=== PATIENT | female | born 1965 | race Hispanic/Latino ===

== ENCOUNTER 2021-01-19 15:42 | Emergency (ER) | payer MEDICAID ==
--- NOTE | 2021-01-19 18:20 | Emergency Department Report ---
ED General Adult HPI - General Chief complaint: Psych Stated complaint: MEDICATIONS NEEDED Time Seen by Provider: 01/19/21 17:06 Source: patient Mode of arrival: Ambulatory Limitations: No Limitations - History of Present Illness Initial comments: Patient presents to the emergency department the chief complaint of auditory hallucinations. Patient states she has a history of schizophrenia and complains of having uncontrollable auditory hallucinations over the last couple of weeks. Patient denies any suicidal or homicidal ideations. Patient also denies any visual hallucinations. Patient patient states she has been to multiple psych facilities in the past and states that she needs help with her auditory hallucinations. -: unknown Severity scale (0 -10): 0 Consistency: constant Improves with: none Worsens with: none Associated Symptoms: denies other symptoms Treatments Prior to Arrival: none - Related Data Home Medications Medication Instructions Recorded Confirmed Last Taken Unobtainable 01/19/21 01/19/21 Unknown Allergies Allergy/AdvReac Type Severity Reaction Status Date / Time cephapirin [From Cefadyl] Allergy Rash Verified 01/19/21 16:26 codeine Allergy Rash Verified 01/19/21 16:26 ED Review of Systems ROS: Stated complaint: MEDICATIONS NEEDED Other details as noted in HPI Constitutional: denies: chills, fever Eyes: denies: eye pain, eye discharge, vision change ENT: denies: ear pain, throat pain Respiratory: denies: cough, shortness of breath, wheezing Cardiovascular: denies: chest pain, palpitations Endocrine: no symptoms reported Gastrointestinal: denies: abdominal pain, nausea, diarrhea Genitourinary: denies: urgency, dysuria, discharge Musculoskeletal: denies: back pain, joint swelling, arthralgia Skin: denies: rash, lesions Neurological: denies: headache, weakness, paresthesias Psychiatric: auditory hallucinations. denies: anxiety, depression, visual hallucinations, homicidal thoughts, suicidal thoughts Hematological/Lymphatic: denies: easy bleeding, easy bruising ED Past Medical Hx - Past Medical History Previous Medical History?: No - Surgical History Past Surgical History?: No - Medications Home Medications: Home Medications Medication Instructions Recorded Confirmed Last Taken Type Unobtainable 01/19/21 01/19/21 Unknown History ED Physical Exam - General Limitations: No Limitations General appearance: alert, in no apparent distress - Head Head exam: Present: atraumatic, normocephalic - Eye Eye exam: Present: normal appearance - ENT ENT exam: Present: mucous membranes moist - Neck Neck exam: Present: normal inspection - Respiratory Respiratory exam: Present: normal lung sounds bilaterally. Absent: respiratory distress - Cardiovascular Cardiovascular Exam: Present: regular rate, normal rhythm. Absent: systolic murmur, diastolic murmur, rubs, gallop - GI/Abdominal GI/Abdominal exam: Present: soft, normal bowel sounds. Absent: distended, tenderness - Extremities Exam Extremities exam: Present: normal inspection - Back Exam Back exam: Present: normal inspection - Neurological Exam Neurological exam: Present: alert, oriented X3, CN II-XII intact. Absent: motor sensory deficit - Psychiatric Psychiatric exam: Present: flat affect. Absent: homicidal ideation, suicidal ideation - Skin Skin exam: Present: warm, dry, intact, normal color. Absent: rash ED Course Vital Signs 01/19/21 17:17 Temperature 98 F Pulse Rate 74 Respiratory 20 Rate Blood Pressure 118/77 [Right] O2 Sat by Pulse 98 Oximetry ED Medical Decision Making - Lab Data Result diagrams: 01/19/21 17:52 01/19/21 17:52 Lab Results 01/19/21 01/19/21 01/19/21 Range/Units 17:52 17:52 17:52 WBC 5.4 (4.5-11.0) K/mm3 RBC 4.25 (3.65-5.03) M/mm3 Hgb 13.9 (10.1-14.3) gm/dl Hct 40.4 (30.3-42.9) % MCV 95 (79-97) fl MCH 33 H (28-32) pg MCHC 35 H (30-34) % RDW 16.1 H (13.2-15.2) % Plt Count 120 L (140-440) K/mm3 Lymph % (Auto) 34.5 (13.4-35.0) % [place] % (Auto) 7.8 H (0.0-7.3) % Eos % (Auto) 0.8 (0.0-4.3) % Baso % (Auto) 0.3 (0.0-1.8) % Lymph # (Auto) 1.9 (1.2-5.4) K/mm3 [place] # (Auto) 0.4 (0.0-0.8) K/mm3 Eos # (Auto) 0.0 (0.0-0.4) K/mm3 Baso # (Auto) 0.0 (0.0-0.1) K/mm3 Seg Neutrophils % 56.6 (40.0-70.0) % Seg Neutrophils # 3.0 (1.8-7.7) K/mm3 Sodium 134 L (137-145) mmol/L Potassium 3.4 L (3.6-5.0) mmol/L Chloride 93.6 L (98-107) mmol/L Carbon Dioxide 25 (22-30) mmol/L Anion Gap 19 mmol/L BUN 21 H (7-17) mg/dL Creatinine 0.8 (0.6-1.2) mg/dL Estimated GFR > 60 ml/min BUN/Creatinine Ratio 26 % Glucose 95 (65-100) mg/dL Calcium 9.5 (8.4-10.2) mg/dL Total Bilirubin 0.40 (0.1-1.2) mg/dL AST 28 (5-40) units/L ALT 10 (7-56) units/L Alkaline Phosphatase 77 (35-129) units/L Total Protein 7.2 (6.3-8.2) g/dL Albumin 4.0 (3.9-5) g/dL Albumin/Globulin Ratio 1.3 % Salicylates < 0.3 L (2.8-20.0) mg/dL Acetaminophen (10.0-30.0) ug/mL Plasma/Serum Alcohol (0-0.07) % 01/19/21 01/19/21 Range/Units 17:52 17:52 WBC (4.5-11.0) K/mm3 RBC (3.65-5.03) M/mm3 Hgb (10.1-14.3) gm/dl Hct (30.3-42.9) % MCV (79-97) fl MCH (28-32) pg MCHC (30-34) % RDW (13.2-15.2) % Plt Count (140-440) K/mm3 Lymph % (Auto) (13.4-35.0) % [place] % (Auto) (0.0-7.3) % Eos % (Auto) (0.0-4.3) % Baso % (Auto) (0.0-1.8) % Lymph # (Auto) (1.2-5.4) K/mm3 [place] # (Auto) (0.0-0.8) K/mm3 Eos # (Auto) (0.0-0.4) K/mm3 Baso # (Auto) (0.0-0.1) K/mm3 Seg Neutrophils % (40.0-70.0) % Seg Neutrophils # (1.8-7.7) K/mm3 Sodium (137-145) mmol/L Potassium (3.6-5.0) mmol/L Chloride (98-107) mmol/L Carbon Dioxide (22-30) mmol/L Anion Gap mmol/L BUN (7-17) mg/dL Creatinine (0.6-1.2) mg/dL Estimated GFR ml/min BUN/Creatinine Ratio % Glucose (65-100) mg/dL Calcium (8.4-10.2) mg/dL Total Bilirubin (0.1-1.2) mg/dL AST (5-40) units/L ALT (7-56) units/L Alkaline Phosphatase (35-129) units/L Total Protein (6.3-8.2) g/dL Albumin (3.9-5) g/dL Albumin/Globulin Ratio % Salicylates (2.8-20.0) mg/dL Acetaminophen 5.0 L (10.0-30.0) ug/mL Plasma/Serum Alcohol < 0.01 (0-0.07) % - Medical Decision Making 1013 applied Medically cleared Awaiting mental health evaluation Critical care attestation.: If time is entered above; I have spent that time in minutes in the direct care of this critically ill patient, excluding procedure time. ED Disposition Clinical Impression: Auditory hallucinations Disposition: [facility] Is pt being admited?: No Does the pt Need Aspirin: No Condition: Stable Referrals: PRIMARY CARE, [Primary Care Provider] - 3-5 Days
[2021-01-19 18:39] LABS: Basophils % (Auto) 0.3 % (0.0-1.8); Eosinophils % (Auto) 0.8 % (0.0-4.3); Hematocrit 40.4 % (30.3-42.9); Hemoglobin 13.9 gm/dl (10.1-14.3); Lymphocytes # (Auto) 1.9 K/mm3 (1.2-5.4); Lymphocytes % (Auto) 34.5 % (13.4-35.0); Mean Corpuscular HGB Conc 35 % (30-34); Mean Corpuscular Volume 95 fl (79-97); Monocytes # (Auto) 0.4 K/mm3 (0.0-0.8); Monocytes % (Auto) 7.8 % (0.0-7.3); Platelet Count 120 K/mm3 (140-440); Red Blood Count 4.25 M/mm3 (3.65-5.03); Red Cell Distribution Width 16.1 % (13.2-15.2)
[2021-01-19 19:02] LABS: Alanine Aminotransferase 10 units/L (7-56); BUN/Creatinine Ratio 26; Blood Urea Nitrogen 21 mg/dL (7-17); Calcium 9.5 mg/dL (8.4-10.2); Hemolysis Index 6
[2021-01-19 23:00] LABS: Bilirubin,Urine NEG (Negative); Blood,Urine NEG (Negative); Color,Urine Yellow (Yellow); Mucus,Urine FEW /HPF; Protein,Urine <15 mg/dL mg/dL (Negative)
[2021-01-19 23:08] LABS: Amphetamine Screen,Urine Negative; Benzodiazepines Screen,Urine Negative; Cannabinoid Screen,Urine Negative; Cocaine Screen,Urine Negative; Methadone Screen,Urine Negative; Opiate Screen,Urine Negative
--- NOTE | 2021-01-20 10:17 | Consultation ---
History of Present Illness - Reason for Consult Consult date: 01/20/21 Reason for consult: SI - History of Present Psychiatric Illness Quin Dorado is a 55y/o feamle patient with a history of Bipolar. The patient states she's having thoughts of suicidal thoughts. SHe says she has a plan "slice my neck and watch the blood run out." She says she has a hard time knowing what she's supposed to do next. The patient [place] [facility] [place] [facility] [place]. She is asking for something for pain. The patient also says she's hearing voices of people talking but she could not tell me what they were saying. PAST PSYCHIATRIC HISTORY: Diagnoses: schizophrenia Suicide attempts or Self-harm behavior: yes Prior psychiatric hospitalizations: Yes Substance Abuse history: Denies Previous psychiatric medications tried: Yes Outpatient treatment: Yes PAST MEDICAL HISTORY: None reported or document Family Psychiatric History: None reported or documented SOCIAL HISTORY Marital Status: Single Living Arrangements[place] [facility] Employment Status: Disabled Access to guns/weapons: Denies Education: History of Abuse: Denies Legal History: unknown REVIEW OF SYSTEMS Constitutional: Negative for weight loss ENT: Negative for stridor Respiratory: Negative for cough or hemoptysis All other systems reviewed and are negative MENTAL STATUS EXAMINATION General Appearance and Behavior: Age appropriate, good hygiene, wearing appropriate clothes. calm, cooperative, polite Cooperation: Cooperative Psychomotor Behavior: Psychomotor normal Mood: depressed Affect and affective range: Congruent with stated mood Thought Process: goal directed Thought Content: None Speech: normal tone and pace Suicidal Ideation: Yes Homicidal Ideation: Denies Hallucinations: Auditory Delusions: None elicited Impulse Control: limited Insight and Judgment: Limited Memory: Limited Attention: attentive Orientation: a/o Assessment (1) Schizophrenia Treatment Plan Risperidone 0.5mg po BID Depakote DR 125mg po BID Risks, benefits and alternatives of medications discussed with the patient, questions answered and consent obtained from patient. PSYCHOTHERAPY: Supportive psychotherapy provided MEDICAL: Per primary team DELIRIUM PRECAUTIONS: Please re-orient patient frequently, keep lights on during the day, and minimize benzodiazepines and opiates as these medications could worsen patient's confusion. ADVERTISING JOB TITLES: Defer to primary DISPOSITION: recommend acute psychiatric in patient treatment FOLLOW-UP: will follow Case staffed with Dr. Hunt Medications and Allergies Allergies Allergy/AdvReac Type Severity Reaction Status Date / Time cephapirin [From Cefadyl] Allergy Rash Verified 01/19/21 16:26 codeine Allergy Rash Verified 01/19/21 16:26 Home Medications Medication Instructions Recorded Confirmed Last Taken Type Unobtainable 01/19/21 01/19/21 Unknown History Mental Status Exam - Vital signs Last Vital Signs Temp 98.4 F 01/20/21 08:30 Pulse 70 01/20/21 08:30 Resp 20 01/20/21 08:30 BP 115/61 01/20/21 08:30 Pulse Ox 97 01/20/21 08:30 Results Result Diagrams: 01/19/21 17:52 01/19/21 17:52 Abnormal lab results 01/19/21 01/19/21 01/19/21 Range/Units 17:52 17:52 17:52 MCH 33 H (28-32) pg MCHC 35 H (30-34) % RDW 16.1 H (13.2-15.2) % Plt Count 120 L (140-440) K/mm3 [place] % (Auto) 7.8 H (0.0-7.3) % Sodium 134 L (137-145) mmol/L Potassium 3.4 L (3.6-5.0) mmol/L Chloride 93.6 L (98-107) mmol/L BUN 21 H (7-17) mg/dL Salicylates < 0.3 L (2.8-20.0) mg/dL Acetaminophen (10.0-30.0) ug/mL 01/19/21 Range/Units 17:52 MCH (28-32) pg MCHC (30-34) % RDW (13.2-15.2) % Plt Count (140-440) K/mm3 [place] % (Auto) (0.0-7.3) % Sodium (137-145) mmol/L Potassium (3.6-5.0) mmol/L Chloride (98-107) mmol/L BUN (7-17) mg/dL Salicylates (2.8-20.0) mg/dL Acetaminophen 5.0 L (10.0-30.0) ug/mL All other labs normal.
[2021-01-20] MEDS ORDERED: risperiDONE 0.25 MG TAB PO SCH (11:00)
[2021-01-20] MEDS ORDERED: DIVALPROEX DR 125 MG TAB PO SCH (11:00)
[2021-01-20] MEDS ORDERED: metFORMIN 500 MG TAB PO ONE (12:21)
--- NOTE | 2021-01-20 12:28 | Emergency Department Report ---
Blank Doc - Documentation Documentation: 55-year-old female initially came to the ED under the name Bj Wright is here on a 1013 for suicidal ideation Patient apparently has been here before with an alternative name as below: Patient Name: JB PAIGE Date of : 1965 As per previous medical record patient has a history of hypertension and diabetes Metformin 500 mg twice daily started Requested nurse to reconcile other medication Patient requested pain medication for pain to both leg. Patient examined. Mild bilateral lower extremity edema. No calf tenderness. No erythema or warmth. 2+ bilateral DP pulses. No skin ulcerations. Patient describes a pins and needle sensation to both legs radiating up to her hips x2 days. She is had similar pain in the past but "not like this". Suspect that patient exhibiting signs and symptoms of diabetic neuropathy. She will be started on gabapentin and p.o. as needed Tylenol. Vital signs reviewed without acute abnormality Mental health consult appreciated. P.o. psychiatric meds initiated pt awaiting placement
[2021-01-20] MEDS ORDERED: GABAPENTIN 300 MG CAP PO ONE (12:29)
[2021-01-20] MEDS ORDERED: ACETAMINOPHEN 325 MG TAB PO PRN (12:31)
[2021-01-20] MEDS: GABAPENTIN 300 MG CAP PO SCH ×2 (14:16→19:31)
[2021-01-20 20:24] VITALS: BP 119/62
== END 2021-01-20 20:58 ==
LOC: ED 15:42
DX: R44.0 Auditory hallucinations (principal); Z20.822 Contact with and (suspected) exposure to COVID-19; I10 Essential (primary) hypertension; E11.9 Type 2 diabetes mellitus without complications; R60.0 Localized edema; Z88.5 Allergy status to narcotic agent; Z88.8 Allergy status to other drugs, medicaments and biological substances
CPT/HCPCS: 36415; 80053; 80307; 81001; 82962; 85025; 99285; U0003; 80320; G0480